=== PATIENT | female | born 1985 | race Caucasian/White ===

== ENCOUNTER 2018-06-09 07:34 | Day surgery (SDC) | payer OTHER ==
[~2018-06-09 07:34] MED LIST: FOLIC ACID PO; MIGRAINE RELIEF PO
--- NOTE | 2018-06-09 09:27 | NUR ---
Ambulatory in Day Surgery History, Chart, Medications and Allergies reviewed before start of procedure.Lungs clear T/O to Auscultation. Patient confirms NPO status and agrees with scheduled surgery. Patient States Post-Procedure ride home has been arranged. Surgical site prepped with 2% Chlorhexidine cloth wipe.
--- NOTE | 2018-06-09 09:41 | NUR ---
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
--- NOTE | 2018-06-09 11:37 | NUR ---
06/09/18 1137 Sanjuana Hung NO PREOP ANTIBIOTIC ORDERED
--- NOTE | 2018-06-09 14:01 | NUR ---
Discharge instructions reviewed with patient. Patient verbalizes understanding. Copy given to patient to take home. Patient up to Ambulate independently. Gait steady. Patient States Post-Procedure ride home has been arranged. Discharged via wheelchair to private car for ride home.
== END 2018-06-09 23:03 | disposition home or self-care (01) ==
LOC: ORSCMMR 07:34 → ORD 08:55 → ORSCMMR 23:03
PROVIDERS: Obstetrics & Gynecology
PROC: 0UB04ZZ Excision of Right Ovary, Percutaneous Endoscopic Approach (ICD-10-PCS; principal; 2018-06-09 10:45)
DX: N83.291 Other ovarian cyst, right side (principal); N80.1 Endometriosis of ovary
CPT/HCPCS: 88305; C1729; J1100; J1885; J2250; J2405; J3010; J7030; J7120

== ENCOUNTER → 2019-05-29 | Outpatient (CLI) | payer OTHER | LOC: LAB SHORT 14:20 → LAB 14:20 | DX: Z34.03 Encounter for supervision of normal first pregnancy, third trimester (principal) | CPT/HCPCS: 87081; 87653 ==

== ENCOUNTER 2019-07-01 02:40 | Inpatient (IN) | payer OTHER ==
[~2019-07-01] VITALS: Ht 172.7 cm; Wt 93.0 kg
[2019-07-01 07:36] LABS: BASOPHILS ABSOLUTE AUTO 0.05 K/mm3 (0.00-0.23); BASOPHILS PERCENT AUTO 0 % (0-2); EOSINOPHILS PERCENT AUTO 0 % (0-6); Hematocrit 38.5 % (33.0-51.0); Hemoglobin 12.8 g/dL (11.5-16.0); IMMATURE GRAN ABSOLUTE AUTO 0.09 K/mm3 (0.00-0.10); IMMATURE GRAN PERCENT AUTO 1 % (0-1); LYMPHOCYTES ABSOLUTE AUTO 0.85 K/mm3 (0.84-5.20); LYMPHOCYTES PERCENT AUTO 5 % (21-46); MONOCYTES ABSOLUTE AUTO 0.61 K/mm3 (0.16-1.47); MONOCYTES PERCENT AUTO 4 % (4-13); Mean Corpuscular HGB 29.4 pg (26.0-34.0); Mean Corpuscular HGB Conc 33.2 g/dL (31.5-36.5); Mean Corpuscular Volume 89 fL (80-100); Mean Platelet Volume 10.1 fL (9.1-12.4); NEUTROPHILS ABSOLUTE AUTO 15.09 K/mm3 (1.96-9.15); NEUTROPHILS PERCENT AUTO 90 % (41-73); Platelet Count 258 K/mm3 (150-400); RDW Coefficient Variation 12.6 % (11.7-14.2); Red Blood Cell Count 4.35 M/mm3 (3.80-5.20); White Blood Cell Count 16.69 K/mm3 (4.00-11.30)
[2019-07-02 05:19] LABS: Hemoglobin 11.7 g/dL (11.5-16.0); Mean Corpuscular HGB Conc 33.4 g/dL (31.5-36.5); Mean Corpuscular Volume 90 fL (80-100); Mean Platelet Volume 10.3 fL (9.1-12.4); Platelet Count 267 K/mm3 (150-400); RDW Standard Deviation 42.6 fL (35.1-46.3); White Blood Cell Count 17.84 K/mm3 (4.00-11.30)
--- NOTE | 2019-07-02 12:11 | NUR ---
PUMP BROUGHT IN TO PT. EXPLAINED HOW TO USE WITH PT AND [place]. ANSWERED ALL QUESTIONS. HELP WITH AND PUMPING.
--- NOTE | 2019-07-02 16:30 | NUR ---
ASSIST MOM REPORTS THAT BABY JUST COMPLETED 25 MINUTES AT BREAST. BABY NOW SLEEPY. DEMONSTRATED CROSS LATCH AND DISCUSSED NOSE TO NIPPLE . DISCUSSED BERATFEEIDNG BOOKS
[2019-07-03] MEDS ORDERED: DOCU100 PO (08:41)
[2019-07-03] MEDS ORDERED: IBUP800 (08:41)
[2019-07-03] MEDS ORDERED: PRENATAL TABLE1 EAC2 PO (08:41)
--- NOTE | 2019-07-03 09:39 | NUR ---
RN ROUNDED TO HELP W/ . INSTRUCT/DEMO WIDENING LATCH, CORRECT POSITIONING, AND NIPPLE SHAPE AFTER FEEDS. INSTRUCT/REVIEWED BOOKLET AND BROCHURE ON WHAT TO EXPECT DURING THE FIRST WEEK OF AND CHANGES IN NB. PT AND SO VERBALIZED UNDERSTANDING AND DENY ANY FURTHER QUESTIONS OR CONCERNS.
--- NOTE | 2019-07-03 13:12 | NUR ---
1310: D/C HOME WITH BABY
== END 2019-07-03 13:10 | disposition home or self-care (01) | DRG 807 ==
LOC: OBS 02:40 → BC 02:43 → OBS 06:43 → BC 06:44
PROVIDERS: ADMIT Obstetrics & Gynecology
PROC: 10907ZC Drainage of Amniotic Fluid, Therapeutic from Products of Conception, Via Natural or Artificial Opening (ICD-10-PCS; principal; 2019-07-01)
PROC: 10D07Z6 Extraction of Products of Conception, Vacuum, Via Natural or Artificial Opening (ICD-10-PCS; 2019-07-01)
PROC: 0KQM0ZZ Repair Perineum Muscle, Open Approach (ICD-10-PCS; 2019-07-01)
PROC: 0W8NXZZ Division of Female Perineum, External Approach (ICD-10-PCS; 2019-07-01)
PROC: 6A550ZT Pheresis of Cord Blood Stem Cells, Single (ICD-10-PCS; 2019-07-01)
DX: O99.824 Streptococcus B carrier state complicating childbirth (principal); Z37.0 Single live birth; O70.1 Second degree perineal laceration during delivery; Z3A.40 40 weeks gestation of pregnancy
CPT/HCPCS: 36415; 59025; 85025; 85027; 86850; 86900; 86901; J0290; J1885; J2210; J2590; J7120

== ENCOUNTER → 2021-07-24 | Outpatient (CLI) | payer OTHER ==
[~2021-07-24] MED LIST changes: +DOCU100 PO; +IBUP800; +PRENATAL TABLE1 EAC2 PO
== END | disposition home or self-care (01) ==
LOC: LAB SHORT 13:45 → LAB 13:45
DX: O09.93 Supervision of high risk pregnancy, unspecified, third trimester (principal)
CPT/HCPCS: 87081; 87150

== ENCOUNTER 2021-08-19 06:18 | Inpatient (IN) | payer OTHER ==
[~2021-08-19] VITALS: Ht 170.2 cm; Wt 93.9 kg
[2021-08-19 06:37] LABS: BASOPHILS ABSOLUTE AUTO 0.04 K/mm3 (0.00-0.23); BASOPHILS PERCENT AUTO 0 % (0-2); EOSINOPHILS ABSOLUTE AUTO 0.03 K/mm3 (0.00-0.68); EOSINOPHILS PERCENT AUTO 0 % (0-6); Hemoglobin 13.8 g/dL (11.5-16.0); IMMATURE GRAN ABSOLUTE AUTO 0.11 K/mm3 (0.00-0.10); IMMATURE GRAN PERCENT AUTO 1 % (0-1); LYMPHOCYTES ABSOLUTE AUTO 1.97 K/mm3 (0.84-5.20); LYMPHOCYTES PERCENT AUTO 12 % (21-46); MONOCYTES ABSOLUTE AUTO 1.15 K/mm3 (0.16-1.47); MONOCYTES PERCENT AUTO 7 % (4-13); Mean Corpuscular HGB 30.7 pg (26.0-34.0); Mean Corpuscular HGB Conc 33.7 g/dL (31.5-36.5); Mean Corpuscular Volume 91 fL (80-100); Mean Platelet Volume 10.1 fL (9.1-12.4); NEUTROPHILS ABSOLUTE AUTO 13.19 K/mm3 (1.96-9.15); NEUTROPHILS PERCENT AUTO 80 % (41-73); Platelet Count 287 K/mm3 (150-400); RDW Coefficient Variation 12.2 % (11.7-14.2); RDW Standard Deviation 40.4 fL (35.1-46.3); White Blood Cell Count 16.49 K/mm3 (4.00-11.30)
[2021-08-20 06:20] LABS: BASOPHILS ABSOLUTE AUTO 0.03 K/mm3 (0.00-0.23); BASOPHILS PERCENT AUTO 0 % (0-2); EOSINOPHILS ABSOLUTE AUTO 0.06 K/mm3 (0.00-0.68); EOSINOPHILS PERCENT AUTO 1 % (0-6); Hematocrit 37.4 % (33.0-51.0); Hemoglobin 12.3 g/dL (11.5-16.0); IMMATURE GRAN ABSOLUTE AUTO 0.05 K/mm3 (0.00-0.10); IMMATURE GRAN PERCENT AUTO 1 % (0-1); LYMPHOCYTES PERCENT AUTO 17 % (21-46); MONOCYTES ABSOLUTE AUTO 0.85 K/mm3 (0.16-1.47); MONOCYTES PERCENT AUTO 8 % (4-13); Mean Corpuscular HGB 30.6 pg (26.0-34.0); Mean Corpuscular HGB Conc 32.9 g/dL (31.5-36.5); Mean Corpuscular Volume 93 fL (80-100); Mean Platelet Volume 10.1 fL (9.1-12.4); NEUTROPHILS ABSOLUTE AUTO 7.48 K/mm3 (1.96-9.15); NEUTROPHILS PERCENT AUTO 74 % (41-73); Platelet Count 219 K/mm3 (150-400); RDW Coefficient Variation 12.2 % (11.7-14.2); RDW Standard Deviation 41.9 fL (35.1-46.3); Red Blood Cell Count 4.02 M/mm3 (3.80-5.20); White Blood Cell Count 10.17 K/mm3 (4.00-11.30)
--- NOTE | 2021-08-20 08:11 | NUR ---
PT UP TO VOID #1 SINCE ZAVALA REMOVAL. VOIDED 750ML, PRV 400ML, PT IMMEDIATELY BACK TO BATHROOM AND WAS ABLE TO VOID 300ML MORE. 114CC PRV
--- NOTE | 2021-08-20 14:45 | NUR ---
DISCHARGE INSTRUCTIONS REVIEWED AND SIGNED.
--- NOTE | 2021-08-20 18:11 | NUR ---
BANDS MATCHED WITH . PT TO BE DISCHARGED TO HOME.
== END 2021-08-20 18:20 | disposition home or self-care (01) | DRG 807 ==
LOC: OBS 06:18 → BC 06:22
PROVIDERS: Obstetrics & Gynecology; ADMIT Advanced Practice Midwife
PROC: 10E0XZZ Delivery of Products of Conception, External Approach (ICD-10-PCS; principal; 2021-08-19)
PROC: 0KQM0ZZ Repair Perineum Muscle, Open Approach (ICD-10-PCS; 2021-08-19)
DX: O99.824 Streptococcus B carrier state complicating childbirth (principal); Z37.0 Single live birth; Z3A.39 39 weeks gestation of pregnancy; Z67.10 Type A blood, Rh positive; Z98.890 Other specified postprocedural states; N83.201 Unspecified ovarian cyst, right side; R33.9 Retention of urine, unspecified; O70.1 Second degree perineal laceration during delivery
CPT/HCPCS: 36415; 85025; 86850; 86900; 86901; A9270; J0290; J1885; J2210; J2590; J7120

== ENCOUNTER → 2023-03-01 | Outpatient (CLI) | payer OTHER | END | disposition home or self-care (01) | LOC: LAB SHORT 14:40 → LAB 14:40 | DX: J02.0 Streptococcal pharyngitis (principal) | CPT/HCPCS: 87081; 87147 ==

== ENCOUNTER → 2024-02-17 | Outpatient (CLI) | payer OTHER ==
[2024-02-25 12:55] LABS: HPV HIGH RISK BY TMA Not Detected; HPV SOURCE Cervical
== END ==
LOC: LAB SHORT 12:05 → LAB 12:05
PROVIDERS: Obstetrics & Gynecology
DX: Z01.419 Encounter for gynecological examination (general) (routine) without abnormal findings (principal); Z97.5 Presence of (intrauterine) contraceptive device
CPT/HCPCS: 87624; G0123

== ENCOUNTER → 2025-02-15 | Outpatient (CLI) | payer OTHER | LOC: LAB SHORT 13:39 → LAB 13:39 | DX: Z87.440 Personal history of urinary (tract) infections (principal) | CPT/HCPCS: 87086 ==